=== PATIENT | male | born 1990 | race Caucasian/White ===

== ENCOUNTER 2016-09-21 21:53 | Emergency (ER) | payer MEDICAID ==
[~2016-09-21] VITALS: Ht 182.9 cm; Wt 105.0 kg
[2016-09-21] MEDS ORDERED: ZIPRASIDONE 20 MG INJ IM ONE ×2 (22:21→22:30)
[2016-09-21] MEDS ORDERED: DIPHENHYDRAMINE 50 MG/ML, 1ML ONE (22:21)
[2016-09-21] MEDS ORDERED: LORazepam 2 MG/ML, 1ML ONE (22:22)
[2016-09-21 22:27] LABS: HEMOGLOBIN 14.3 g/dL (13.7-18.0)
[2016-09-21] MEDS ORDERED: LORazepam 1MG TABLET PO ONE (22:30)
[2016-09-21] MEDS ORDERED: PLEASE ENTER ALLERGIES MC SCH ×2 (22:30)
[2016-09-21] MEDS ORDERED: LORazepam 2 MG/ML, 1ML IM ONE (22:30)
[2016-09-21] MEDS ORDERED: DIPHENHYDRAMINE 50 MG/ML, 1ML IM ONE (22:30)
[2016-09-21 22:38] LABS: BLOOD UREA NITROGEN 10 mg/dL (7-18)
[2016-09-21 22:42] LABS: ACETAMINOPHEN < 2 mcg/mL (10-30)
[2016-09-22 03:45] LABS: DAU SCREEN DISCLAIMER
[2016-09-22] MEDS ORDERED: HYDROcodone/APAP 5/325 TABLET ONE (06:54)
[2016-09-22] MEDS ORDERED: ZIPRASIDONE 20 MG INJ IM SCH (09:00)
[2016-09-22] MEDS ORDERED: ZIPRASIDONE 20MG CAPSULE ONE (10:08)
[2016-09-22] MEDS: ZIPRASIDONE 40MG CAPSULE PO SCH ×2 (10:10→21:02)
[2016-09-23] MEDS ORDERED: ZIPRASIDONE 20MG CAPSULE ONE (08:13)
[2016-09-23] MEDS: ZIPRASIDONE 40MG CAPSULE PO SCH ×2 (08:15→19:46)
[2016-09-23] MEDS ORDERED: ALBUTEROL/IPRATROPIUM 2.5MG/0.5MG, 3 ML NPPB ONE (18:30)
[2016-09-24] MEDS ORDERED: ZIPRASIDONE 20MG CAPSULE ONE (08:05)
[2016-09-24] MEDS: ZIPRASIDONE 40MG CAPSULE PO SCH ×2 (09:29→22:40)
[2016-09-25] MEDS: ZIPRASIDONE 40MG CAPSULE PO SCH ×2 (08:37→21:15)
[2016-09-25] MEDS ORDERED: LORazepam 1MG TABLET ONE (23:46)
[2016-09-26] MEDS ORDERED: LORazepam 1MG TABLET PO ONE
[2016-09-26] MEDS ORDERED: ZIPRASIDONE 20MG CAPSULE ONE (08:55)
[2016-09-26] MEDS: ZIPRASIDONE 40MG CAPSULE PO SCH ×2 (08:57→21:18)
[2016-09-26] MEDS ORDERED: ZIPRASIDONE 20 MG INJ IM ONE ×2 (16:34→17:00)
[2016-09-26] MEDS ORDERED: LORazepam 1MG TABLET PO PRN (19:30)
[2016-09-27] MEDS: ZIPRASIDONE 40MG CAPSULE PO SCH ×2 (09:00→21:00)
[2016-09-27] MEDS ORDERED: ZIPRASIDONE 20 MG INJ IM ONE ×2 (21:28→21:30)
[2016-09-28] MEDS: ZIPRASIDONE 40MG CAPSULE PO SCH (09:08)
[2016-09-28 12:20] VITALS: BP 119/77
== END 2016-09-28 12:23 ==
LOC: ED 09-22 03:39
DX: F31.62 Bipolar disorder, current episode mixed, moderate (principal); F29 Unspecified psychosis not due to a substance or known physiological condition
CPT/HCPCS: 36415; 80048; 80307; 80329; 82040; 85025; 96372; 99285; J1200; J2060; J3486; G0480

== ENCOUNTER 2016-11-13 19:34 | Observation (INO) | payer MEDICAID ==
[~2016-11-13] VITALS: Ht 182.9 cm; Wt 116.0 kg
[2016-11-13] MEDS ORDERED: LORazepam 2 MG/ML, 1ML ONE (19:37)
[2016-11-13] MEDS ORDERED: DIPHENHYDRAMINE 50 MG/ML, 1ML ONE (19:37)
[2016-11-13] MEDS ORDERED: HALOPERIDOL 5 MG/ML ONE (19:37)
[2016-11-13] MEDS ORDERED: HALOPERIDOL 5 MG/ML IM ONE (20:00)
[2016-11-13] MEDS ORDERED: DIPHENHYDRAMINE 50 MG/ML, 1ML IM ONE (20:00)
[2016-11-13] MEDS ORDERED: LORazepam 2 MG/ML, 1ML IM ONE (20:00)
[2016-11-13 20:11] LABS: BLOOD UREA NITROGEN 12 mg/dL (7-18)
[2016-11-13 20:13] LABS: ACETAMINOPHEN < 2 mcg/mL (10-30)
[2016-11-13 20:28] LABS: DAU SCREEN DISCLAIMER
[2016-11-13] MEDS ORDERED: LITH300C PO (21:20)
[2016-11-13] MEDS ORDERED: ESCI10TA PO (21:20)
[2016-11-13] MEDS ORDERED: GEMF600T3 PO (21:21)
[2016-11-13] MEDS ORDERED: ARIP5TAB6 PO (21:21)
[2016-11-13] MEDS ORDERED: DIVA500T17 PO (21:22)
[2016-11-13] MEDS ORDERED: RISP3TAB3 PO (21:23)
[2016-11-13] MEDS ORDERED: ONDANSETRON ODT 4 MG PO PRN (22:30)
[2016-11-13] MEDS ORDERED: ZIPRASIDONE 20 MG INJ IM PRN (22:30)
[2016-11-13] MEDS ORDERED: ACETAMINOPHEN 325 MG TABLET PO PRN (22:30)
[2016-11-14] MEDS: LITHIUM CARBONATE 300 MG CAPSULE PO SCH ×2 (11:46→21:16)
[2016-11-14] MEDS: GEMFIBROZIL 600 MG TABLET PO SCH (11:46)
[2016-11-14] MEDS: CITALOPRAM 20 MG TABLET PO SCH (11:47)
[2016-11-14] MEDS: ARIPIPRAZOLE 5 MG TABLET PO SCH (11:47)
[2016-11-14 19:43] VITALS: BP 136/89
[2016-11-14] MEDS ORDERED: DIVALPROEX 500 MG TAB.ER.24H PO SCH (21:00)
[2016-11-14] MEDS ORDERED: RISPERIDONE 1 MG TABLET PO SCH (21:00)
[2016-11-15 08:04] VITALS: BP 123/75
[2016-11-15] MEDS: CITALOPRAM 20 MG TABLET PO SCH (09:03)
[2016-11-15] MEDS: ARIPIPRAZOLE 5 MG TABLET PO SCH (09:03)
[2016-11-15] MEDS: LITHIUM CARBONATE 300 MG CAPSULE PO SCH (09:04)
[2016-11-15] MEDS: GEMFIBROZIL 600 MG TABLET PO SCH (09:04)
== END 2016-11-15 12:29 ==
LOC: ED 22:00 → SUATTDRO 22:25 → EDIP 22:30 → ED 22:42 → 3E 11-14 18:41
DX: R45.851 Suicidal ideations (principal); R45.850 Homicidal ideations; F23 Brief psychotic disorder; D72.829 Elevated white blood cell count, unspecified; F84.0 Autistic disorder; F31.9 Bipolar disorder, unspecified
CPT/HCPCS: 36415; 80048; 80164; 80178; 80307; 80329; 81003; 82040; 85025; 96372; 99285; G0378; J1200; J1630; J2060; G0480

== ENCOUNTER 2017-07-15 19:58 | Observation (INO) | payer MEDICAID ==
[~2017-07-15] VITALS: Ht 172.7 cm; Wt 80.0 kg
[~2017-07-15 19:58] MED LIST: ARIP5TAB13 PO; DIVA500T17 PO; ESCI10TA PO; GEMF600T3 PO; LITH300C PO; RISP3TAB3 PO
[2017-07-15] MEDS ORDERED: LORazepam 1MG TABLET ONE (20:25)
[2017-07-15] MEDS ORDERED: LORazepam 1MG TABLET PO ONE (20:30)
[2017-07-15 20:36] LABS: BASOPHILS # (AUTO) 0.04 x10^3/uL (0-0.1); BASOPHILS % (AUTO) 0 % (0-1); EOSINOPHILS # (AUTO) 0.25 x10^3/uL (0-0.4); EOSINOPHILS % (AUTO) 2 % (1-7); LYMPHOCYTES # (AUTO) 3.24 x10^3/uL (1-3.4); LYMPHOCYTES % (AUTO) 27 % (22-44); MD NO; MEAN CORPUSCULAR HEMOGLOBIN 32.3 pg (27.5-34.5); MEAN PLATELET VOLUME 8.5 fL (7.4-10.4); MONOCYTES % (AUTO) 10 % (2-9); NEUTROPHILS # (AUTO) 7.24 x10^3/uL (1.8-6.8); NEUTROPHILS % (AUTO) 61 % (42-75); PLATELET COUNT 297 x10^3/uL (130-400); RED BLOOD COUNT 4.78 x10^6/uL (4.38-5.82); RED CELL DISTRIBUTION WIDTH 13.4 % (9.4-14.8)
[2017-07-15 20:47] LABS: ALANINE AMINOTRANSFERASE 91 U/L (12-78); ALBUMIN 3.9 g/dL (3.4-5.0); ANION GAP 11 mmol/L (5-15); CALCIUM 9.3 mg/dL (8.5-10.1); CHLORIDE 101 mmol/L (98-107); CREATININE 1.18 mg/dL (0.7-1.3); SALICYLATE LEVEL < 1.7 mg/dL (2.8-20.0)
[2017-07-15 20:48] LABS: ACETAMINOPHEN < 2 mcg/mL (10-30)
[2017-07-15 20:49] LABS: ALKALINE PHOSPHATASE 84 U/L (45-117); BILIRUBIN,TOTAL 0.4 mg/dL (0.2-1.0); TOTAL PROTEIN 8.1 g/dL (6.4-8.2)
[2017-07-15 21:54] LABS: AMPHETAMINE SCREEN, URINE Negative (Negative); BARBITURATE SCREEN, URINE Negative (Negative); BENZODIAZEPINE SCREEN, URINE Negative (Negative); CANNABINOID SCREEN, URINE Negative (Negative); COCAINE SCREEN, URINE Negative (Negative); METHADONE SCREEN, URINE Negative (Negative); OPIATE SCREEN, URINE Negative (Negative)
[2017-07-16] MEDS: LITHIUM CARBONATE 300 MG CAPSULE PO SCH ×2 (12:00→22:29)
[2017-07-16] MEDS ORDERED: ARIPIPRAZOLE 5 MG TABLET PO SCH (12:00)
[2017-07-16] MEDS ORDERED: DIVALPROEX 500 MG TAB.ER.24H PO SCH (21:00)
[2017-07-16] MEDS ORDERED: RISPERIDONE 1 MG TABLET PO SCH (21:00)
[2017-07-16] MEDS ORDERED: LORazepam 1MG TABLET PO PRN (23:00)
[2017-07-16] MEDS ORDERED: DOCUSATE 100 MG CAPSULE PO PRN (23:00)
[2017-07-16] MEDS ORDERED: LORazepam 2 MG/ML, 1ML IM PRN (23:00)
[2017-07-16] MEDS ORDERED: ONDANSETRON ODT 4 MG PO PRN (23:00)
[2017-07-16 23:13] LABS: FREE T4 (FREE THYROXINE) 0.91 ng/dL (0.76-1.46); THYROID STIMULATING HORMONE 1.36 mIU/L (0.358-3.740)
[2017-07-17] MEDS ORDERED: ACET-76 PO (01:34)
[2017-07-17] MEDS ORDERED: LEVO150T5 PO (01:34)
[2017-07-17] MEDS ORDERED: DIVA500T17 PO (01:34)
[2017-07-17] MEDS ORDERED: LITH450T PO (01:34)
[2017-07-17] MEDS ORDERED: NAPR-816 PO (01:34)
[2017-07-17] MEDS ORDERED: PANT20TA3 PO (01:34)
[2017-07-17] MEDS ORDERED: QUET100T PO (01:34)
[2017-07-17] MEDS: LEVOTHYROXINE 150 MCG TABLET PO SCH (07:00)
[2017-07-17] MEDS: PANTOPRAZOLE 20MG TABLET PO SCH (07:30)
[2017-07-17] MEDS: CITALOPRAM 10 MG TABLET PO SCH (09:00)
[2017-07-17] MEDS ORDERED: CITALOPRAM 20 MG TABLET PO SCH (09:00)
[2017-07-17] MEDS: LITHIUM CARBONATE 150 MG CAPSULE PO SCH ×2 (09:00→20:34)
[2017-07-17] MEDS ORDERED: PANTOPRAZOLE 20MG TABLET ONE (09:30)
[2017-07-17] MEDS: DIVALPROEX 500 MG TAB.ER.24H PO SCH (20:34)
[2017-07-17] MEDS: QUETIAPINE 100MG TABLET PO SCH (20:35)
[2017-07-18] MEDS: CITALOPRAM 10 MG TABLET PO SCH (12:55)
[2017-07-18] MEDS: PANTOPRAZOLE 20MG TABLET PO SCH (12:55)
[2017-07-18] MEDS: LEVOTHYROXINE 150 MCG TABLET PO SCH (12:55)
[2017-07-18] MEDS: LITHIUM CARBONATE 150 MG CAPSULE PO SCH ×2 (12:55→20:18)
[2017-07-18] MEDS: QUETIAPINE 100MG TABLET PO SCH (20:18)
[2017-07-18] MEDS: DIVALPROEX 500 MG TAB.ER.24H PO SCH (20:18)
[2017-07-19] MEDS: LEVOTHYROXINE 150 MCG TABLET PO SCH (12:55)
[2017-07-19] MEDS: LITHIUM CARBONATE 150 MG CAPSULE PO SCH (12:55)
[2017-07-19] MEDS: PANTOPRAZOLE 20MG TABLET PO SCH (12:55)
[2017-07-19] MEDS: CITALOPRAM 10 MG TABLET PO SCH (12:55)
[2017-07-19] MEDS ORDERED: PANTOPRAZOLE 20MG TABLET ONE ×2 (13:03→21:26)
[2017-07-19] MEDS: QUETIAPINE 100MG TABLET PO SCH (21:30)
[2017-07-19] MEDS: DIVALPROEX 500 MG TAB.ER.24H PO SCH (21:30)
[2017-07-20] MEDS: LITHIUM CARBONATE 150 MG CAPSULE PO SCH ×3 (06:38→21:16)
[2017-07-20] MEDS: LEVOTHYROXINE 150 MCG TABLET PO SCH (06:38)
[2017-07-20] MEDS: PANTOPRAZOLE 20MG TABLET PO SCH (07:30)
[2017-07-20] MEDS ORDERED: PANTOPRAZOLE 20MG TABLET ONE (08:49)
[2017-07-20] MEDS: CITALOPRAM 10 MG TABLET PO SCH (09:00)
[2017-07-20] MEDS: QUETIAPINE 100MG TABLET PO SCH (21:16)
[2017-07-20] MEDS: DIVALPROEX 500 MG TAB.ER.24H PO SCH (21:16)
[2017-07-21] MEDS ORDERED: LORazepam 2 MG/ML, 1ML ONE (01:26)
[2017-07-21] MEDS: LEVOTHYROXINE 150 MCG TABLET PO SCH (06:10)
[2017-07-21] MEDS ORDERED: PANTOPRAZOLE 20MG TABLET ONE (08:15)
[2017-07-21] MEDS: LITHIUM CARBONATE 150 MG CAPSULE PO SCH (10:04)
[2017-07-21] MEDS: PANTOPRAZOLE 20MG TABLET PO SCH (10:04)
[2017-07-21] MEDS: CITALOPRAM 10 MG TABLET PO SCH (10:04)
[2017-07-21 14:26] VITALS: BP 131/81
== END 2017-07-21 14:56 | disposition home or self-care (01) ==
LOC: ED 21:13 → EDIP 07-16 22:14 → INTOOBSV 07-16 22:14
PROVIDERS: ADMIT Internal Medicine; ATTEND Internal Medicine
DX: R45.851 Suicidal ideations (principal); R45.850 Homicidal ideations; F31.9 Bipolar disorder, unspecified; D72.829 Elevated white blood cell count, unspecified; F84.0 Autistic disorder; F17.200 Nicotine dependence, unspecified, uncomplicated; Z91.5 Personal history of self-harm; Z91.14 Patient's other noncompliance with medication regimen
CPT/HCPCS: 36415; 80053; 80164; 80178; 80307; 80329; 84439; 84443; 85025; 99285; G0378; J2060; G0480

== ENCOUNTER 2017-10-30 10:15 | Observation (INO) | payer MEDICAID ==
[~2017-10-30] VITALS: Ht 180.3 cm; Wt 109.4 kg
[~2017-10-30 10:15] MED LIST changes: +ACET-76 PO; +LEVO150T5 PO; +LITH450T PO; +NAPR-816 PO; +PANT20TA3 PO; +QUET100T PO
[2017-10-30] MEDS ORDERED: LORazepam 1MG TABLET ONE (10:58)
[2017-10-30] MEDS ORDERED: LORazepam 1MG TABLET PO ONE (11:00)
[2017-10-30 11:10] LABS: BASOPHILS # (AUTO) 0.03 x10^3/uL (0-0.1); BASOPHILS % (AUTO) 0 % (0-1); EOSINOPHILS # (AUTO) 0.39 x10^3/uL (0-0.4); EOSINOPHILS % (AUTO) 4 % (1-7); LYMPHOCYTES # (AUTO) 3.09 x10^3/uL (1-3.4); LYMPHOCYTES % (AUTO) 35 % (22-44); MD NO; MEAN CORPUSCULAR HEMOGLOBIN 33.8 pg (27.5-34.5); MEAN CORPUSCULAR HGB CONC 35.4 g/dL (33.2-36.2); MEAN CORPUSCULAR VOLUME 95.2 fL (81-97); MEAN PLATELET VOLUME 8.1 fL (7.4-10.4); MONOCYTES # (AUTO) 0.88 x10^3/uL (0.2-0.8); MONOCYTES % (AUTO) 10 % (2-9); NEUTROPHILS # (AUTO) 4.35 x10^3/uL (1.8-6.8); NEUTROPHILS % (AUTO) 50 % (42-75); PLATELET COUNT 253 x10^3/uL (130-400); RED BLOOD COUNT 4.16 x10^6/uL (4.38-5.82); RED CELL DISTRIBUTION WIDTH 13.5 % (9.4-14.8)
[2017-10-30 11:22] LABS: ALBUMIN 3.6 g/dL (3.4-5.0); ANION GAP 12 mmol/L (5-15); CALCIUM 8.3 mg/dL (8.5-10.1); CHLORIDE 95 mmol/L (98-107)
[2017-10-30 11:30] LABS: ALKALINE PHOSPHATASE 81 U/L (45-117); BILIRUBIN,TOTAL 0.5 mg/dL (0.2-1.0); CREATININE 1.38 mg/dL (0.7-1.3)
[2017-10-30 11:48] LABS: AMPHETAMINE SCREEN, URINE Negative (Negative); BARBITURATE SCREEN, URINE Negative (Negative); BENZODIAZEPINE SCREEN, URINE Negative (Negative); CANNABINOID SCREEN, URINE Negative (Negative); COCAINE SCREEN, URINE Negative (Negative); METHADONE SCREEN, URINE Negative (Negative); OPIATE SCREEN, URINE Negative (Negative)
[2017-10-30 12:13] LABS: SALICYLATE LEVEL 2.6 mg/dL (2.8-20.0)
[2017-10-30 12:14] LABS: ACETAMINOPHEN < 2 mcg/mL (10-30)
[2017-10-30 12:30] LABS: ALANINE AMINOTRANSFERASE 58 U/L (12-78)
[2017-10-30] MEDS ORDERED: QUETIAPINE 25MG TABLET PO PRN (13:30)
[2017-10-30] MEDS ORDERED: ZIPRASIDONE 20MG CAPSULE PO PRN (13:30)
[2017-10-30] MEDS ORDERED: HALOPERIDOL 5 MG TABLET PO PRN ×2 (13:30)
[2017-10-30] MEDS ORDERED: HALOPERIDOL 5 MG/ML IM PRN ×2 (13:30)
[2017-10-30] MEDS ORDERED: POLYETHYLENE GLYCOL 17 GM PACKET PO PRN (13:30)
[2017-10-30] MEDS ORDERED: ZIPRASIDONE 20 MG INJ IM PRN (13:30)
[2017-10-30] MEDS ORDERED: LORazepam 2 MG/ML, 1ML IM PRN ×2 (13:30)
[2017-10-30] MEDS ORDERED: ZOLPIDEM 5MG TABLET PO PRN (13:30)
[2017-10-30] MEDS ORDERED: TEMAZEPAM 15 MG CAPSULE PO PRN (13:30)
[2017-10-30 14:52] VITALS: BP 132/90
[2017-10-30] MEDS ORDERED: metFORMIN 850 MG TABLET PO SCH (17:00)
[2017-10-30] MEDS: INSULIN LISPRO 100 UNITS/ML, PEN SQ-INSULIN SCH ×2 (18:28→21:06)
[2017-10-30 20:00] VITALS: BP 122/74
[2017-10-31] MEDS: TRAZODONE 50MG TABLET PO PRN (01:13)
[2017-10-31] MEDS: LORazepam 1MG TABLET PO PRN (03:30)
[2017-10-31] MEDS: INSULIN LISPRO 100 UNITS/ML, PEN SQ-INSULIN SCH ×4 (07:26→20:35)
[2017-10-31] MEDS: SENNA/DOCUSATE TABLET PO SCH (07:45)
[2017-10-31 07:58] VITALS: BP 103/69
[2017-10-31 15:59] LABS: HEMOGLOBIN A1C 8.9 % (4.2-6.3)
[2017-10-31] MEDS: metFORMIN 850 MG TABLET PO SCH (17:10)
[2017-10-31 20:00] VITALS: BP 143/88
[2017-11-01] MEDS ORDERED: DIVA500T17 PO (06:38)
[2017-11-01] MEDS ORDERED: SIMV40TA3 PO (06:43)
[2017-11-01] MEDS: INSULIN LISPRO 100 UNITS/ML, PEN SQ-INSULIN SCH ×4 (07:59→21:07)
[2017-11-01 08:00] VITALS: BP 119/80
[2017-11-01] MEDS: metFORMIN 850 MG TABLET PO SCH ×2 (08:37→17:06)
[2017-11-01] MEDS: SENNA/DOCUSATE TABLET PO SCH (08:37)
[2017-11-01] MEDS: LORazepam 1MG TABLET PO PRN (17:06)
[2017-11-01 20:59] VITALS: BP 123/87
[2017-11-02] MEDS: INSULIN LISPRO 100 UNITS/ML, PEN SQ-INSULIN SCH ×4 (08:02→20:39)
[2017-11-02] MEDS: metFORMIN 850 MG TABLET PO SCH ×2 (08:02→16:22)
[2017-11-02] MEDS: SENNA/DOCUSATE TABLET PO SCH (08:03)
[2017-11-02 09:07] VITALS: BP 140/87
[2017-11-02] MEDS: LEVOTHYROXINE 150 MCG TABLET PO SCH (11:30)
[2017-11-02] MEDS ORDERED: LEVOTHYROXINE 50 MCG TABLET ONE (11:35)
[2017-11-02] MEDS ORDERED: LEVOTHYROXINE 100 MCG TABLET ONE (11:35)
[2017-11-02 19:56] VITALS: BP 132/87
[2017-11-02] MEDS: SIMVASTATIN 40 MG TABLET PO SCH (20:40)
[2017-11-02] MEDS: DIPHENHYDRAMINE 50 MG CAPSULE PO PRN (20:40)
[2017-11-02] MEDS: TRAZODONE 50MG TABLET PO PRN (20:41)
[2017-11-03] MEDS: metFORMIN 850 MG TABLET PO SCH ×2 (07:29→16:18)
[2017-11-03] MEDS: SENNA/DOCUSATE TABLET PO SCH (07:29)
[2017-11-03] MEDS: INSULIN LISPRO 100 UNITS/ML, PEN SQ-INSULIN SCH ×5 (07:29→21:34)
[2017-11-03] MEDS: LEVOTHYROXINE 150 MCG TABLET PO SCH (07:29)
[2017-11-03 08:30] VITALS: BP 136/97
[2017-11-03] MEDS: ONDANSETRON 4 MG TABLET PO PRN ×2 (16:29→21:39)
[2017-11-03 20:31] VITALS: BP 116/75
[2017-11-03] MEDS: SIMVASTATIN 40 MG TABLET PO SCH (21:34)
[2017-11-03] MEDS: DIPHENHYDRAMINE 50 MG CAPSULE PO PRN (21:35)
[2017-11-04] MEDS: INSULIN LISPRO 100 UNITS/ML, PEN SQ-INSULIN SCH ×3 (08:03→16:30)
[2017-11-04] MEDS: LEVOTHYROXINE 150 MCG TABLET PO SCH (08:03)
[2017-11-04] MEDS: SENNA/DOCUSATE TABLET PO SCH (08:09)
[2017-11-04 08:13] VITALS: BP 129/94
[2017-11-04] MEDS: metFORMIN 850 MG TABLET PO SCH ×2 (10:03→16:39)
[2017-11-04] MEDS: LORazepam 1MG TABLET PO PRN (12:46)
[2017-11-04] MEDS: DIVALPROEX 500 MG TAB.ER.24H PO SCH ×2 (14:00→21:00)
[2017-11-04] MEDS: LURASIDONE 20 MG TABLET PO SCH (16:45)
[2017-11-04 20:00] VITALS: BP 131/83
[2017-11-04] MEDS: TRAZODONE 50MG TABLET PO PRN (21:06)
[2017-11-04] MEDS: SIMVASTATIN 40 MG TABLET PO SCH (21:06)
[2017-11-05] MEDS: INSULIN LISPRO 100 UNITS/ML, PEN SQ-INSULIN SCH ×4 (07:00→20:56)
[2017-11-05 07:21] VITALS: BP 145/99
[2017-11-05] MEDS: DIVALPROEX 500 MG TAB.ER.24H PO SCH ×2 (08:07→20:25)
[2017-11-05] MEDS: LEVOTHYROXINE 150 MCG TABLET PO SCH (08:07)
[2017-11-05] MEDS: SENNA/DOCUSATE TABLET PO SCH (08:07)
[2017-11-05] MEDS: LURASIDONE 20 MG TABLET PO SCH ×2 (08:07→16:33)
[2017-11-05] MEDS: metFORMIN 850 MG TABLET PO SCH ×2 (08:07→16:33)
[2017-11-05] MEDS: ACETAMINOPHEN 325 MG TABLET PO PRN ×2 (09:27→18:22)
[2017-11-05 19:59] VITALS: BP 133/89
[2017-11-05] MEDS: SIMVASTATIN 40 MG TABLET PO SCH (20:25)
[2017-11-06] MEDS: LORazepam 1MG TABLET PO PRN (01:03)
[2017-11-06] MEDS: INSULIN LISPRO 100 UNITS/ML, PEN SQ-INSULIN SCH ×2 (07:00→11:00)
[2017-11-06] MEDS: LURASIDONE 20 MG TABLET PO SCH (07:36)
[2017-11-06] MEDS: LEVOTHYROXINE 150 MCG TABLET PO SCH (07:36)
[2017-11-06] MEDS: DIVALPROEX 500 MG TAB.ER.24H PO SCH (07:36)
[2017-11-06] MEDS: ONDANSETRON 4 MG TABLET PO PRN (07:36)
[2017-11-06] MEDS: metFORMIN 850 MG TABLET PO SCH (07:36)
[2017-11-06] MEDS: SENNA/DOCUSATE TABLET PO SCH (07:50)
[2017-11-06 08:16] VITALS: BP 132/91
== END 2017-11-06 15:46 | disposition home or self-care (01) ==
LOC: ED 13:20 → 3E 13:21 → ED 13:52
PROVIDERS: ADMIT Internal Medicine Pulmonary Disease; ATTEND Internal Medicine Pulmonary Disease
DX: R45.851 Suicidal ideations (principal); F12.90 Cannabis use, unspecified, uncomplicated; E87.1 Hypo-osmolality and hyponatremia; E11.65 Type 2 diabetes mellitus with hyperglycemia; F31.9 Bipolar disorder, unspecified; E03.9 Hypothyroidism, unspecified; F33.2 Major depressive disorder, recurrent severe without psychotic features
CPT/HCPCS: 36415; 80053; 80307; 80329; 82962; 83036; 85025; 96372; 99285; G0378; J1815; Q0162; G0480